=== PATIENT | female | born 1985 | race Caucasian/White ===

== ENCOUNTER → 2017-04-19 | Outpatient (CLI) | payer OTHER ==
[~2017-04-19] MED LIST: ACCUNEB 0.1.25 MG/3 INH; ADDERALL XR 3030 MG PO; ALLEGRA ALLERG180 M2 PO; CIPRO250 MG PO; CLARITIN10 MG PO; FLUTICASON0.05 MG/AC NAS; PREDNISONE20 M1 PO; SINGULAIR10 MG PO; ZITHROMAX Z PA250 MG PO; ZOFRAN ODT4 MG SL
[2017-04-21 13:08] LABS: PARVOVIRUS B19 IGG 6.1 index (0.0-0.8); PARVOVIRUS B19 IGM 163154 0.2 index (0.0-0.8)
== END | disposition home or self-care (01) ==
LOC: LAB 12:32
PROVIDERS: Nurse Practitioner Obstetrics & Gynecology
DX: Z34.90 Encounter for supervision of normal pregnancy, unspecified, unspecified trimester (principal); Z3A.00 Weeks of gestation of pregnancy not specified

== ENCOUNTER 2020-02-28 13:29 | Emergency (ER) | payer BC ==
[~2020-02-28] VITALS: Ht 170.1 cm; Wt 51.7 kg
[2020-02-28] MEDS ORDERED: MEDROL DOSEPAK4 MG PO (13:46)
[2020-02-28] MEDS ORDERED: EPIPEN 2-P0.3 MG/0.3 IJ (13:49)
== END 2020-02-28 13:50 | disposition home or self-care (01) ==
LOC: ED 13:29
DX: T78.40XA Allergy, unspecified, initial encounter (principal); Z88.8 Allergy status to other drugs, medicaments and biological substances; Z88.0 Allergy status to penicillin; Z79.899 Other long term (current) drug therapy; X58.XXXA Exposure to other specified factors, initial encounter

== ENCOUNTER 2021-12-13 17:34 | Emergency (ER) | payer BC ==
[~2021-12-13] VITALS: Ht 167.6 cm; Wt 52.2 kg
[~2021-12-13 17:34] MED LIST changes: +EPIPEN 2-P0.3 MG/0.3 IJ; +MEDROL DOSEPAK4 MG PO
== END 2021-12-13 18:58 | disposition home or self-care (01) ==
LOC: ED 17:34
DX: S61.012A Laceration without foreign body of left thumb without damage to nail, initial encounter (principal); S61.211A Laceration without foreign body of left index finger without damage to nail, initial encounter; Z79.899 Other long term (current) drug therapy; Z88.0 Allergy status to penicillin; Z88.5 Allergy status to narcotic agent; W26.0XXA Contact with knife, initial encounter; Y93.89 Activity, other specified; Y92.090 Kitchen in other non-institutional residence as the place of occurrence of the external cause; Y99.9 Unspecified external cause status

== ENCOUNTER → 2022-04-20 | Outpatient (CLI) | payer BC | END | disposition home or self-care (01) | LOC: LAB 14:48 | PROVIDERS: ATTEND Family Medicine | DX: R05.9 Cough, unspecified (principal); U09.9 Post COVID-19 condition, unspecified ==

== ENCOUNTER 2022-05-05 01:01 | Emergency (ER) | payer BC ==
[~2022-05-05] VITALS: Ht 167.6 cm; Wt 52.2 kg
[2022-05-05 01:26] LABS: BASO % 0.2 % (0.0-1.0); EOS # 0.2 10*3/uL (0.0-0.4); EOS % 1.7 % (1.0-4.0); HEMATOCRIT 40.7 % (37.0-47.0); LYMPH # 1.6 10*3/uL (1.3-4.4); LYMPH % 17.1 % (27.0-41.0); MEAN CELL VOLUME 92.9 fl (81.0-99.0); MEAN CORPUSCULAR HGB 30.1 pg (27.0-31.0); MEAN CORPUSCULAR HGB CONC 32.4 g/dl (33.0-37.0); MEAN PLATELET VOLUME 10.5 fl (9.6-12.3); MONO # 0.5 10*3/uL (0.1-1.0); MONO % 5.4 % (3.0-9.0); NEUT # 6.9 10*3/uL (2.3-7.9); NEUT % 75.4 % (47.0-73.0); PLATELET COUNT AUTOMATED 221 10*3/uL (130-400); RED BLOOD COUNT 4.38 10*6/uL (4.10-5.10); RED CELL DISTRI WIDTH 13.4 % (0-14.5); WHITE BLOOD COUNT 9.2 10*3/uL (4.8-10.8)
[2022-05-05] MEDS ORDERED: WELLBUTRIN SR150 MG PO (01:28)
[2022-05-05 01:37] LABS: ACT PARTIAL THROMBO TIME 29.7 SECONDS (20.0-32.1); INTERNATIONAL NORM RATIO 0.9 (2.0-3.5)
[2022-05-05 01:52] LABS: ALKALINE PHOSPHATASE 53 U/L (46-116); BUN 11 mg/dl (9-23); CHLORIDE 104 mmol/L (98-107); POTASSIUM 3.9 mmol/L (3.4-5.1); SGPT/ALT 16 U/L (10-49); TOTAL PROTEIN 7.2 gm/dL (6.0-8.0)
[2022-05-05] MEDS ORDERED: LEVOFLOXACIN750 M2 PO (03:33)
[2022-05-05] MEDS ORDERED: DIFLUCAN150 MG PO (03:33)
== END 2022-05-05 04:11 | disposition home or self-care (01) ==
LOC: ED 01:01
PROVIDERS: Emergency Medicine
DX: J18.9 Pneumonia, unspecified organism (principal); Z88.0 Allergy status to penicillin; Z88.5 Allergy status to narcotic agent; J45.909 Unspecified asthma, uncomplicated; Z98.890 Other specified postprocedural states